=== PATIENT | female | born 1995 | race African-American/Black ===

== ENCOUNTER 2024-03-07 04:11 | Emergency (ER) | payer MEDICAID ==
[~2024-03-07] VITALS: Ht 162.6 cm; Wt 54.4 kg
[2024-03-07] MEDS ORDERED: diphenhydrAMINE HCL ELIX 25 MG/10 ML UDC ONE (06:30)
[2024-03-07] MEDS ORDERED: KETOROLAC TROMETHAMINE INJ 30 MG/ML VIAL ONE (06:30)
[2024-03-07] MEDS ORDERED: METOCLOPRAMIDE HCL 10 MG TABLET ONE (06:31)
[2024-03-07] MEDS: DIPHENHYDRAMINE HCL 12.5 MG/5 ML UDC PO ONE (06:32)
[2024-03-07] MEDS: KETOROLAC TROMETHAMINE INJ 60 MG/2 ML VIAL IM ONE (06:32)
[2024-03-07] MEDS: METOCLOPRAMIDE HCL 10 MG TABLET PO ONE (06:32)
[2024-03-07] MEDS ORDERED: METO-295 PO (07:01)
[2024-03-07 08:06] VITALS: BP 128/78; TEMP 98; O2SAT 98
== END 2024-03-07 07:10 | disposition home or self-care (01) ==
LOC: ER 04:15
DX: H53.149 Visual discomfort, unspecified (principal); G43.909 Migraine, unspecified, not intractable, without status migrainosus; R11.10 Vomiting, unspecified; Z87.2 Personal history of diseases of the skin and subcutaneous tissue; Z88.8 Allergy status to other drugs, medicaments and biological substances
CPT/HCPCS: 99283; 96372; Q0163 ×2; J8597; J1885